=== PATIENT | male | born 1995 | race Caucasian/White ===

== ENCOUNTER 2017-12-17 05:56 | Day surgery (SDC) | payer BC ==
[2017-12-17] MEDS: LACTATED RINGER'S 1,000 ML IV (06:52)
[2017-12-17] MEDS ORDERED: PROPOFOL 40 ML (07:23)
[2017-12-17] MEDS ORDERED: CEFAZOLIN 1 GM INJ (07:24)
[2017-12-17] MEDS ORDERED: LIDOCAINE 2% (SDV) 5 ML INJ (07:24)
[2017-12-17] MEDS ORDERED: FENTAnyl 50 MCG/ML VIAL (07:24)
[2017-12-17] MEDS ORDERED: ONDANSETRON 4 MG INJ (07:24)
[2017-12-17] MEDS ORDERED: FAMOTIDINE 20 MG INJ (07:24)
[2017-12-17] MEDS ORDERED: MIDAZOLAM 1 MG/ML 2 ML INJ (07:24)
[2017-12-17] MEDS ORDERED: MEPERIDINE 25 MG INJ IV (07:30)
[2017-12-17] MEDS ORDERED: morphine (1 MG/ML) 10ML SYRINGE IV ×2 (07:30)
[2017-12-17] MEDS ORDERED: HYDROmorphONE 1 MG/5 ML IV SYRINGE IV ×2 (07:30)
[2017-12-17] MEDS ORDERED: FENTAnyl 50 MCG/ML VIAL IV ×2 (07:30)
[2017-12-17] MEDS ORDERED: ALBUTEROL 0.083% (NEB) 2.5 MG/3 ML AMP HHN (07:30)
[2017-12-17] MEDS ORDERED: OXYCODONE/ACETAMINOPHEN (5/325) TAB PO ×4 (07:30→08:30)
[2017-12-17] MEDS ORDERED: DIPHENHYDRAMINE 50 MG INJ IV (07:30)
[2017-12-17] MEDS ORDERED: ONDANSETRON 4 MG INJ IV ×2 (07:30→08:30)
[2017-12-17] MEDS ORDERED: LABETALOL HCL 20MG INJ IV (07:30)
[2017-12-17] MEDS ORDERED: PHENYLephrine (100 MCG/ML) 5ML SYG (07:42)
[2017-12-17] MEDS: BUPIVACAINE 0.25% (MPF) 30 ML INJ (07:53)
[2017-12-17] MEDS: LIDOCAINE 1% (MPF) 30 ML INJ INJ ×2 (07:53)
[2017-12-17] MEDS ORDERED: KETOROLAC 30 MG INJ (08:01)
[2017-12-17] MEDS ORDERED: morphine 2 MG INJ IV (08:30)
== END 2017-12-17 09:45 | disposition home or self-care (01) ==
LOC: SDS 05:56
DX: D17.0 Benign lipomatous neoplasm of skin and subcutaneous tissue of head, face and neck (principal); F17.210 Nicotine dependence, cigarettes, uncomplicated
CPT/HCPCS: 21012; 88307; 90686